=== PATIENT | male | born 1955 | race Hispanic/Latino ===

== ENCOUNTER 2018-02-19 10:32 | Outpatient (CLI) | payer MEDICAID ==
--- NOTE | 2018-02-19 11:37 | Fluoroscopy Report ---
FLUOROSCOPY RETROGRADE URETHROGRAM History: Other specified disorders of the urethra, urethral stricture. Findings: Sterile technique was utilized. 56 fluoroscopic images were captured. The meatus was catheterized with an 8 [place]an catheter and secured by balloon inflation. Retrograde administration of water-soluble contrast demonstrates a moderate to high grade stricture in the anterior urethra measuring approximately 3 cm in length. Stenosis is estimated at 75-80%. The remainder of the urethra is unremarkable. No reflux of contrast into the bladder could be accomplished. Impression: Moderate to high-grade urethral stricture as described.
== END 2018-02-19 10:33 | disposition home or self-care (01) ==
LOC: FLUORO 10:32
PROVIDERS: ATTEND Urology
DX: N35.814 Other anterior urethral stricture, male (principal); N36.8 Other specified disorders of urethra
CPT/HCPCS: 51610; 74450; Q9967

== ENCOUNTER 2018-03-11 08:54 | Day surgery (SDC) | payer MEDICAID ==
[2018-03-11] MEDS ORDERED: LACTATED RINGERS 1,000 ML IV SCH (09:14)
[2018-03-11] MEDS ORDERED: SUBLIMAZE ONE (09:37)
[2018-03-11] MEDS ORDERED: DIPRIVAN 10 MG/ML IV ONE (09:37)
[2018-03-11] MEDS ORDERED: XYLOCAINE MPF 2% ONE (09:37)
[2018-03-11] MEDS ORDERED: DILAUDID IV PRN (10:02)
--- NOTE | 2018-03-11 10:05 | Anesthesia Day of Surgery ---
Anesthesia Day of Surgery - Day of Surgery Patient Examined: Yes Patient H&P Reviewed: Yes Patient is NPO: Yes
--- NOTE | 2018-03-11 10:05 | Anesthesia Consultation ---
Anesthesia Consult and Med Hx Date of service: 03/11/18 - Airway Anesthetic Teeth Evaluation: Chipped, Crowns ROM Head & Neck: Adequate Mental/Hyoid Distance: Adequate Mallampati Class: Class I Intubation Access Assessment: Probably Good (potential difficult mask 2/2 large adkins) - Pulmonary Exam CTA: Yes - Cardiac Exam Cardiac Exam: RRR - Pre-Operative Health Status ASA Pre-Surgery Classification: ASA2 Proposed Anesthetic Plan: General - Pulmonary Hx Smoking: No Hx Asthma: No Hx Respiratory Symptoms: No (no recent cough or flu-like symptoms) Hx Sleep Apnea: No (JAYANT PRE SCREEN HIGH RISK) - Cardiovascular System Hx Hypertension: No Hx Heart Attack/AMI: No Hx Percutaneous Transluminal Coronary Angioplasty (PTCA): No - Central Nervous System Hx Seizures: No CVA: No Hx Back Pain: Yes (chronic) Hx Psychiatric Problems: Yes (anxiety/depression; takes xanax qHS (last dose 03/10/18)) - Gastrointestinal Hx Gastroesophageal Reflux Disease: Yes (infrequent, diet controlled; asymptomatic today) - Endocrine Hx Renal Disease: No Hx Liver Disease: No Hx Insulin Dependent Diabetes: No Hx Non-Insulin Dependent Diabetes: No Hx Thyroid Disease: No - Other Systems Hx Obesity: Yes - Additional Comments Anesthesia Medical History Comments: No hx anesthetic complications.
[2018-03-11] MEDS ORDERED: VERSED IV NR (11:00)
[2018-03-11] MEDS ORDERED: ceFAZolin 2 GM in NACL 0.9% 100 ML IV ONE (11:37)
[2018-03-11] MEDS ORDERED: ROBINUL ONE (11:52)
[2018-03-11] MEDS ORDERED: WATER FOR IRRIG STERILE IR ONE (12:00)
[2018-03-11] MEDS ORDERED: ANCEF/STERILE WATER 2 GM/20 ML 2 GM/20 ML SYRINGE IV SCH (12:09)
--- NOTE | 2018-03-11 12:26 | Discharge Summary ---
Short Stay Discharge Plan Activity: other (no straining ) Weight Bearing Status: Full Weight Bearing Diet: low fat, low cholesterol, low salt Special Instructions: other (teach young care ) Durable Medical Equipment Needed Upon Discharge: other (home with catheter ) Follow up with: RAJ ESQUIVEL MD [Primary Care Provider] - 7 Days ADAM VALERIO MD [Staff Physician] - 14 Days
[2018-03-11] MEDS ORDERED: LASIX ONE (12:27)
--- NOTE | 2018-03-11 12:27 | Post Operative Note ---
Date of procedure: 03/11/18 Pre-op diagnosis: stricture Post-op diagnosis: other (2 strictures) Findings: 2 1 cm strictures Procedure: cysto dviu cytogram Anesthesia: GETA Surgeon: ADAM VALERIO Estimated blood loss: minimal Pathology: none Condition: stable Disposition: PACU
--- NOTE | 2018-03-11 13:21 | Post Anesthesia Evaluation ---
- Post Anesthesia Evaluation Patient Participated: Yes Airway Patent: Yes Stable Respiratory Function: Yes Nausea/Vomiting: No Temp > 96.8F: Yes Pain Manageable: Yes Adequeate Hydration: Yes Anesthesia Complications: No
[2018-03-11 13:44] VITALS: BP 117/76
--- NOTE | 2018-03-11 15:10 | Fluoroscopy Report ---
Retrograde urethrogram and static cystogram in OR: Single AP view of contrast in the urethra demonstrates a high-grade anterior urethral stricture. This cannot be measured but appears relatively similar to the fluoroscopic retrograde performed on February 19, 2018. Estimated comparison of length also cannot be made due to differences in positioning. Contrast however did flow retrograde into the urinary bladder on the current study. The contrast-filled bladder has a normal rounded contour with no filling defects. No retrograde filling of the ureters is noted. Impression: 1. Anterior urethral stenosis. 2. Unremarkable urinary bladder.
--- NOTE | 2018-03-11 19:09 | Operative Report ---
PREOPERATIVE DIAGNOSIS: Severe urethral strictures. POSTOPERATIVE DIAGNOSES: Severe urethral strictures with 2 separate strictures, one penile urethral stricture and one membranous urethral stricture. PROCEDURE: Cystoscopy, direct vision internal urethrotomy x 2. SURGEON: Dominic Diaz MD ANESTHESIA: General. FINDINGS: This is a gentleman with a decreased flow, straining to void, incomplete emptying. He now presents for treatment. DESCRIPTION OF PROCEDURE: The patient was brought to the operating room and placed on the operating table. Following induction of anesthesia, placed in lithotomy position, prepped and draped in usual sterile fashion. At this point, we looked in his urethra and there was a pinpoint urethra. We did an urethrogram and a cystogram. Urethrogram showed 2 areas of narrowing. We tried to get the wire through the distal area, which went in proximally eventually with manipulation with an open-ended catheter, we got it in. The patient tolerated the procedure well. Once the wire was in the bladder, direct vision urethrotomy was required to get in the bladder. The bladder was thickened. It was not very trabeculated. There was clear efflux from each orifice. The patient tolerated the procedure well. No significant complications. A 22 [place] was placed over the wire. Cystogram was done, which showed no extravasation ____ thickened bladder wall, patient brought to recovery in stable condition. JOB# [id number] MOHAMUD/MINA
== END 2018-03-11 08:55 | disposition home or self-care (01) ==
LOC: OR 08:54
PROVIDERS: ATTEND Urology
DX: N35.819 Other urethral stricture, male, unspecified site (principal); K21.9 Gastro-esophageal reflux disease without esophagitis; E66.9 Obesity, unspecified; Z68.36 Body mass index [BMI] 36.0-36.9, adult; F32.9 Major depressive disorder, single episode, unspecified; F41.9 Anxiety disorder, unspecified; Z79.899 Other long term (current) drug therapy; Z98.49 Cataract extraction status, unspecified eye
CPT/HCPCS: 51610; 52276; 74430; 74450; A4217; C1758; C1769; J1940; J2250; J2704; J3010; J7120; Q9967; J0690

== ENCOUNTER 2021-04-14 10:52 | Outpatient (CLI) | payer OTHER ==
--- NOTE | 2021-04-14 12:20 | Cat Scan Report ---
CT LUMBAR SPINE WITHOUT CONTRAST INDICATION: M54.50 LOW BACK PAIN. TECHNIQUE: Axial imaging performed through the lumbar spine without the use of contrast. Sagittal a nd coronal reconstructed images were also reviewed. All CT scans at this location are performed usin g CT dose reduction for ALARA by means of automated exposure control. COMPARISON: None FINDINGS: Alignment: There is 2 mm retrolisthesis of L2 with respect to L3 and L3 with respect to L4 on the sa gittal reconstructed images. This appears to be secondary to degenerative facet arthropathy. The yolanda ining lumbar vertebra are normal in alignment. Bones: No acute osseous injury or bone lesion is identified. Mild discogenic DJD is identified at L 1-2, L2-3, L3-4 and L5-S1. There is mild facet arthropathy at L2-3, L3-4 and L4-5. No hypertrophic ch anges. Soft tissues: No acute or significant incidental soft tissue abnormality. IMPRESSION: [id number] degenerative findings in the lumbar spine as described. No acute osseou s abnormality or bone lesion. Signer Name: Martin Barnett Jr, MD Signed: 04/14/2021 12:14 PM Workstation Name: [id number]
== END 2021-04-14 10:53 | disposition home or self-care (01) ==
LOC: CT 10:52
PROVIDERS: ATTEND Internal Medicine
DX: M47.816 Spondylosis without myelopathy or radiculopathy, lumbar region (principal); M43.16 Spondylolisthesis, lumbar region
CPT/HCPCS: 72131